=== PATIENT | male | born 1985 | race Caucasian/White ===

== ENCOUNTER 2019-12-16 13:44 | Emergency (ER) | payer OTHER ==
[~2019-12-16] VITALS: Ht 177.8 cm; Wt 68.0 kg
== END 2019-12-16 15:19 | disposition home or self-care (01) ==
LOC: ER 13:44
DX: N48.1 Balanitis (principal)

== ENCOUNTER 2020-09-12 14:09 | Emergency (ER) | payer OTHER ==
[~2020-09-12] VITALS: Ht 177.8 cm; Wt 72.6 kg
[2020-09-12] MEDS ORDERED: INTESTINEX680 M1 PO (17:56)
[2020-09-12] MEDS ORDERED: PEPCID AC20 MG PO (17:56)
== END 2020-09-12 18:42 | disposition home or self-care (01) ==
LOC: ER 14:09
DX: K52.89 Other specified noninfective gastroenteritis and colitis (principal)

== ENCOUNTER 2023-07-01 11:16 | Emergency (ER) | payer OTHER ==
[~2023-07-01] VITALS: Ht 177.8 cm; Wt 70.3 kg
[~2023-07-01 11:16] MED LIST: INTESTINEX680 M1 PO; PEPCID AC20 MG PO
[2023-07-01] MEDS ORDERED: INTESTINEX680 M1 PO (15:47)
[2023-07-01] MEDS ORDERED: PEPCID AC20 MG PO (15:47)
[2023-07-01] MEDS ORDERED: LEVSIN/SL0.125 MG SL (15:47)
[2023-07-01] MEDS ORDERED: ZOFRAN8 MG PO (15:47)
== END 2023-07-01 16:20 | disposition home or self-care (01) ==
LOC: ER 11:16
DX: K52.9 Noninfective gastroenteritis and colitis, unspecified (principal); R11.2 Nausea with vomiting, unspecified; R11.10 Vomiting, unspecified; Z20.822 Contact with and (suspected) exposure to COVID-19; Z88.1 Allergy status to other antibiotic agents

== ENCOUNTER 2023-08-31 17:51 | Emergency (ER) | payer OTHER ==
[~2023-08-31] VITALS: Ht 170.2 cm; Wt 70.3 kg
[~2023-08-31 17:51] MED LIST changes: +LEVSIN/SL0.125 MG SL; +ZOFRAN8 MG PO
[2023-08-31 20:58] LABS: HEMATOCRIT 39.1 % (39.0-48.0); HEMOGLOBIN 13.6 g/dL (13-16.00); MEAN CELL VOLUME 97.1 fL (80.0-100.00); MEAN CORPUSCULAR HEMOGLOBIN 33.8 pg (27.00-32.0); MEAN CORPUSCULAR HGB CONC 34.8 g/dl (32.0-36.0); PLATELET COUNT 245 K/uL (150-450); RED BLOOD COUNT 4.02 M/uL (4.00-6.00); RED CELL DISTRIBUTION WIDTH 13.6 % (11.5-14.5)
== END 2023-08-31 22:16 | disposition home or self-care (01) ==
LOC: ER 17:51
PROVIDERS: General Practice
DX: J06.9 Acute upper respiratory infection, unspecified (principal); Z20.822 Contact with and (suspected) exposure to COVID-19; Z88.8 Allergy status to other drugs, medicaments and biological substances

== ENCOUNTER 2025-07-19 11:43 | Emergency (ER) | payer OTHER ==
[~2025-07-19] VITALS: Ht 177.8 cm; Wt 68.0 kg
[2025-07-19] MEDS ORDERED: CETIRIZINE HCL 5 MG/5 ML ML PO ONE (12:00)
[2025-07-19] MEDS ORDERED: KETOROLAC TROMETHAMINE 10 MG TABLET PO ONE (12:00)
[2025-07-19 12:53] LABS: BASO % 0.2 % (0.1-1.2); EOS # 0.01 (0.04-0.54); EOS % 0.1 % (0.7-7.0); LYMPH # 1.45 (1.18-3.74); LYMPH % 8.3 % (19.3-53.1); MEAN PLATELET VOLUME 8.40 fl (9.4-12.4); MONO # 2.02 (0.24-0.82); MONO % 11.6 % (4.7-12.5); NEUT # 13.83 (1.56-6.13); NEUT % 79.2 % (34.0-71.1); RED CELL DISTRIBUTION WIDTH 12.1 % (11.6-14.4)
[2025-07-19] MEDS ORDERED: CEFTRIAXONE SODIUM 1,000 MG VIAL IV ONE (13:30)
[2025-07-19] MEDS ORDERED: 0.9 % SODIUM CHLORIDE 1,000 ML IV ONE (13:30)
[2025-07-19 13:46] LABS: COVID-19 AG NEGATIVE (NEGATIVE)
[2025-07-19 15:06] LABS: BASO % 0.2 % (0.1-1.2); EOS # 0.00 (0.04-0.54); EOS % 0.0 % (0.7-7.0); LYMPH # 1.19 (1.18-3.74); LYMPH % 7.3 % (19.3-53.1); MEAN PLATELET VOLUME 8.90 fl (9.4-12.4); MONO # 1.94 (0.24-0.82); MONO % 11.9 % (4.7-12.5); NEUT # 12.95 (1.56-6.13); NEUT % 79.7 % (34.0-71.1); RED CELL DISTRIBUTION WIDTH 12.0 % (11.6-14.4)
[2025-07-19] MEDS ORDERED: PEPCID AC20 MG PO (15:27)
[2025-07-19] MEDS ORDERED: AMOX1TAB5 PO (15:27)
== END 2025-07-19 16:01 | disposition home or self-care (01) ==
LOC: ER 11:43
PROVIDERS: General Practice
DX: J00 Acute nasopharyngitis [common cold] (principal); Z20.822 Contact with and (suspected) exposure to COVID-19; Z88.8 Allergy status to other drugs, medicaments and biological substances